=== PATIENT | female | born 1990 | race Caucasian/White ===

== ENCOUNTER 2016-11-15 17:04 | Emergency (ER) | payer OTHER ==
[~2016-11-15] VITALS: Ht 149.9 cm; Wt 58.1 kg
--- NOTE | 2016-11-15 17:45 | NUR ---
Pt c/o left ear ache for 2 days and sore throat x 3 weeks. Pt denies CP, SOB, ARAYA, dizziness, n/v, no other complaints, no distress noted. Gave pt RX and d/c instructions, verbalized understanding.
== END 2016-11-15 17:49 | disposition home or self-care (01) ==
LOC: ER 17:05 → EDBD 17:05 → ER 17:49
DX: H66.92 Otitis media, unspecified, left ear (principal); H60.92 Unspecified otitis externa, left ear; F17.200 Nicotine dependence, unspecified, uncomplicated; G43.909 Migraine, unspecified, not intractable, without status migrainosus; Z88.6 Allergy status to analgesic agent
CPT/HCPCS: 99283; A4663

== ENCOUNTER 2016-12-01 05:39 | Emergency (ER) | payer OTHER ==
[~2016-12-01] VITALS: Ht 149.9 cm; Wt 59.0 kg
--- NOTE | 2016-12-01 05:47 | NUR ---
Patient walked into ER c/o frequent/burning upon urination since this AM, Pt is alert, oriented x 4, no resp distress noted or reported upon assessment... md at bedside..
[2016-12-01 05:49] LABS: *BILIRUBIN,URIN NEGATIVE (NEGATIVE); *BLOOD, URINE 3+ (NEGATIVE); *CLARITY,URINE CLOUDY (CLEAR); *COLOR,URINE RED (YELLOW); *KETONES,URINE NEGATIVE (NEGATIVE); *PROTEIN,URINE 2+ (NEGATIVE); *UROBILINOGEN,URINE 0.2 E.U./dl (NORMAL); LEUKOCYTE ESTERASE ,URINE 2+ (NEGATIVE); NITRITE, URINE NEGATIVE (NEGATIVE); PH,URINE 6.5 (5.0-8.0); UGLUCOSE NEGATIVE (NEGATIVE)
[2016-12-01 06:03] LABS: *URINE HCG, QUAL NEGATIVE (NEGATIVE)
[2016-12-01 06:15] LABS: WBC,URINE 20-50 /HPF (0-3)
[2016-12-01 06:16] LABS: BACTERIA,URINE FEW /HPF (NONE SEEN); SQUAMOUS EPITHELIAL CELL,UR FEW /HPF (NONE SEEN)
[2016-12-01] MEDS ORDERED: ONDANSETRON ODT 4 MG TAB.RAPDIS SL ONE (06:30)
[2016-12-01] MEDS ORDERED: AZITHROMYCIN 250 MG TABLET PO ONE (06:30)
[2016-12-01] MEDS ORDERED: PHENAZOPYRIDINE HCL 100 MG TABLET PO ONE (06:30)
[2016-12-01] MEDS ORDERED: CEFTRIAXONE 500 MG VIAL IM ONE (06:30)
[2016-12-01] MEDS ORDERED: ONDANSETRON ODT 4 MG TAB.RAPDIS ONE (06:38)
[2016-12-01] MEDS ORDERED: AZITHROMYCIN 250 MG TABLET ONE (06:38)
[2016-12-01] MEDS ORDERED: LIDOCAINE HCL 1% 20 ML VIAL ONE (06:39)
[2016-12-01] MEDS ORDERED: PHENAZOPYRIDINE HCL 100 MG TABLET ONE (06:39)
[2016-12-01] MEDS ORDERED: CEFTRIAXONE 500 MG VIAL ONE (06:39)
--- NOTE | 2016-12-01 06:43 | NUR ---
Patient discharged to home in stable conditon. Written and verbal after care instructions given. Patient verbalizes understanding of instructions. pt walked out of ER unassisted with belongings at side...
[2016-12-01 06:44] VITALS: BP 115/79
== END 2016-12-01 06:44 | disposition home or self-care (01) ==
LOC: ER 05:41
DX: N30.90 Cystitis, unspecified without hematuria (principal); F17.200 Nicotine dependence, unspecified, uncomplicated; F10.10 Alcohol abuse, uncomplicated; G43.909 Migraine, unspecified, not intractable, without status migrainosus
CPT/HCPCS: 84703; 87077; 87086; A4663; J0696; J3490; Q0144; Q0162

== ENCOUNTER 2017-04-07 05:41 | Emergency (ER) | payer OTHER ==
[~2017-04-07] VITALS: Ht 149.9 cm; Wt 61.2 kg
[2017-04-07] MEDS ORDERED: FLUC150T5 PO (05:57)
[2017-04-07 06:38] VITALS: BP 129/85
== END 2017-04-07 06:38 | disposition home or self-care (01) ==
LOC: ER 05:45
DX: B34.9 Viral infection, unspecified (principal); F17.200 Nicotine dependence, unspecified, uncomplicated; G43.909 Migraine, unspecified, not intractable, without status migrainosus; Z88.6 Allergy status to analgesic agent
CPT/HCPCS: 99283; A4663

== ENCOUNTER 2018-04-13 19:47 | Emergency (ER) | payer OTHER ==
[~2018-04-13] VITALS: Ht 149.9 cm; Wt 56.7 kg
[~2018-04-13 19:47] MED LIST: FLUC150T5 PO
[2018-04-13] MEDS ORDERED: HYDROCODONE/APAP 5-325MG TABLET PO ONE (20:45)
[2018-04-13] MEDS ORDERED: HYDROCODONE/APAP 5-325MG TABLET ONE (21:00)
--- NOTE | 2018-04-13 21:00 | NUR ---
Pt. ambulated into ED w/ c/o 01/18 shoulder pain from self reported dislocation while dancing at 1900, reports previous hx of dislocation and surgical fixation of L shoulder in 2011, orthopedic splint and ice pack applied, will continue to monitor,
--- NOTE | 2018-04-13 21:29 | NUR ---
Patient discharged to home in stable conditon. Written and verbal after care instructions given. Patient verbalizes understanding of instructions. Pt. d/c w/ prescription per MD order, d/c papers signed, all belongings w/ pt., instructed not to drive, ambulated w/ steady gait, ID band removed, no acute distress,
== END 2018-04-13 21:33 | disposition home or self-care (01) ==
LOC: ER 19:47
DX: S43.004A Unspecified dislocation of right shoulder joint, initial encounter (principal); F17.200 Nicotine dependence, unspecified, uncomplicated; Z88.6 Allergy status to analgesic agent; Z79.899 Other long term (current) drug therapy; Z90.49 Acquired absence of other specified parts of digestive tract; X58.XXXA Exposure to other specified factors, initial encounter; Y93.89 Activity, other specified; Y92.89 Other specified places as the place of occurrence of the external cause; Y99.8 Other external cause status
CPT/HCPCS: 73030; A4663

== ENCOUNTER 2018-05-15 17:40 | Emergency (ER) | payer OTHER ==
[~2018-05-15] VITALS: Ht 149.9 cm; Wt 63.5 kg
--- NOTE | 2018-05-15 20:09 | NUR ---
PATIENT LEFT BEFORE BEING SEEN BY ERMD. STATES WILL COME BACK IN AM. NO DISTRESS NOTED ON PATIENT
== END 2018-05-15 20:10 | disposition left against medical advice (07) ==
LOC: ER 17:40
DX: Z53.21 Procedure and treatment not carried out due to patient leaving prior to being seen by health care provider (principal)
CPT/HCPCS: A4663

== ENCOUNTER 2018-07-18 01:17 | Emergency (ER) | payer OTHER ==
[~2018-07-18] VITALS: Ht 149.9 cm; Wt 65.8 kg
[2018-07-18 01:43] LABS: *BILIRUBIN,URIN NEGATIVE (NEGATIVE); *BLOOD, URINE NEGATIVE (NEGATIVE); *CLARITY,URINE CLEAR (CLEAR); *COLOR,URINE YELLOW (YELLOW); *KETONES,URINE NEGATIVE (NEGATIVE); *UROBILINOGEN,URINE 0.2 E.U./dl (NORMAL); LEUKOCYTE ESTERASE ,URINE NEGATIVE (NEGATIVE); NITRITE, URINE NEGATIVE (NEGATIVE); UGLUCOSE NEGATIVE (NEGATIVE)
[2018-07-18 01:48] LABS: *URINE HCG, QUAL NEGATIVE (NEGATIVE)
--- NOTE | 2018-07-18 02:13 | NUR ---
Patient in bed, no acute distress noted. VSS
--- NOTE | 2018-07-18 02:42 | NUR ---
Patient discharged to home in stable conditon. Written and verbal after care instructions given. Patient verbalizes understanding of instructions. Ambulated from ER with stable gait. All belongings with patient. VSS
[2018-07-18 02:43] VITALS: BP 128/74
== END 2018-07-18 02:44 | disposition home or self-care (01) ==
LOC: ER 01:18
DX: R30.0 Dysuria (principal); F17.200 Nicotine dependence, unspecified, uncomplicated; Z90.49 Acquired absence of other specified parts of digestive tract; Z88.8 Allergy status to other drugs, medicaments and biological substances; Z79.899 Other long term (current) drug therapy
CPT/HCPCS: 84703; 87086; A4663

== ENCOUNTER 2019-02-21 13:36 | Emergency (ER) | payer OTHER ==
[~2019-02-21] VITALS: Ht 149.9 cm; Wt 66.7 kg
[2019-02-21] MEDS ORDERED: SWABABLE VALVE TRANSFER SET EA MC ONE (15:11)
[2019-02-21] MEDS ORDERED: IOHEXOL 350 100 ML INFUS..BTL ONE (15:11)
[2019-02-21] MEDS ORDERED: IV NORMAL SALINE 250 ML IV ONE (15:11)
[2019-02-21 15:18] LABS: BASOPHILS # (AUTO) 0.1 K/uL (0.0-8.0); EOSINOPHILS # (AUTO) 0.1 K/uL (0.0-0.7); EOSINOPHILS % (AUTO) 1.6 % (0.0-7.0); HEMATOCRIT 38.4 % (31.2-41.9); HEMOGLOBIN 12.8 g/dL (10.9-14.3); LYMPHOCYTES # (AUTO) 2.8 K/uL (20.0-40.0); LYMPHOCYTES % (AUTO) 40.7 % (20.5-51.5); MEAN CORPUSCULAR HGB CONC 33 g/dL (32.3-35.6); MEAN CORPUSCULAR VOLUME 87.2 fL (75.5-95.3); MONOCYTES # (AUTO) 0.4 K/uL (2.0-10.0); MONOCYTES % (AUTO) 5.6 % (0.0-11.0); NEUTROPHILS # (AUTO) 3.5 K/uL (1.8-8.9); NEUTROPHILS % (AUTO) 51.1 % (38.5-71.5); PLATELET COUNT (AUTO) 233 K/uL (179-408); WHITE BLOOD COUNT (AUTO) 6.8 K/uL (3.8-11.8)
[2019-02-21 15:25] LABS: CREATININE 0.8 mg/dL (0.6-1.3); POTASSIUM 3.8 mmol/L (3.5-5.1)
[2019-02-21] MEDS: IV NORMAL SALINE 1000 ML BAG IV ONE (15:29)
[2019-02-21] MEDS ORDERED: KETOROLAC TROMETHAMINE 15 MG INJ ONE (15:34)
[2019-02-21 15:38] LABS: BILIRUBIN,DIRECT 0.1 mg/dL (0.0-0.2); BILIRUBIN,TOTAL 0.3 mg/dL (0.2-1.0); TOTAL PROTEIN, SERUM 7.7 g/dL (6.4-8.2)
[2019-02-21] MEDS: KETOROLAC TROMETHAMINE 15 MG INJ IVP ONE (15:38)
--- NOTE | 2019-02-21 17:25 | NUR ---
IV removed. Catheter intact and site benign. Pressure and 4x4 gauze applied to site. No bleeding noted. Patient discharged to home in stable conditon. Written and verbal after care instructions given. Patient verbalizes understanding of instructions. pt ambulating with steady gait
[2019-02-21 17:27] VITALS: BP 117/72
== END 2019-02-21 17:20 | disposition home or self-care (01) ==
LOC: ER 13:36
DX: S29.012A Strain of muscle and tendon of back wall of thorax, initial encounter (principal); G43.909 Migraine, unspecified, not intractable, without status migrainosus; F17.200 Nicotine dependence, unspecified, uncomplicated; Z90.49 Acquired absence of other specified parts of digestive tract; Z88.8 Allergy status to other drugs, medicaments and biological substances; Z79.899 Other long term (current) drug therapy; X58.XXXA Exposure to other specified factors, initial encounter; Y93.89 Activity, other specified; Y92.89 Other specified places as the place of occurrence of the external cause; Y99.8 Other external cause status
CPT/HCPCS: 36415; 71045; 71275; 80048; 80076; 83880; 84484; 84702; 85025; 85379; 85651; 85730; 93005; 96374; 99284; J1885; Q9967; 70030-TC; A4663; J7030; J7050

== ENCOUNTER 2022-01-21 17:22 | Emergency (ER) | payer OTHER ==
[~2022-01-21] VITALS: Ht 149.9 cm; Wt 68.0 kg
[2022-01-21 17:55] LABS: *BILIRUBIN,URIN NEGATIVE (NEGATIVE); *CLARITY,URINE CLEAR (CLEAR); *COLOR,URINE YELLOW (YELLOW); *KETONES,URINE NEGATIVE (NEGATIVE); *UROBILINOGEN,URINE 0.2 E.U./dl (NORMAL); LEUKOCYTE ESTERASE ,URINE NEGATIVE (NEGATIVE); NITRITE, URINE NEGATIVE (NEGATIVE); PH,URINE 5.5 (5.0-8.0); UGLUCOSE NEGATIVE (NEGATIVE)
[2022-01-21 17:57] LABS: *BLOOD, URINE TRACE (NEGATIVE); *URINE HCG, QUAL NEGATIVE (NEGATIVE)
[2022-01-21 18:06] LABS: BACTERIA,URINE FEW /HPF (NONE SEEN); RBC,URINE 0-3 /HPF (0-3); SQUAMOUS EPITHELIAL CELL,UR FEW /HPF (NONE SEEN); WBC,URINE 0-3 /HPF (0-3)
--- NOTE | 2022-01-21 18:09 | NUR ---
.Patient is resting comfortably on ANGEL donato, pending MD evaluation@this time
--- NOTE | 2022-01-21 18:34 | NUR ---
Dr [email or web address], medical screening exam in progress.
[2022-01-21] MEDS ORDERED: TRAMADOL HCL 50 MG TABLET PO ONE (18:45)
[2022-01-21] MEDS ORDERED: TRAMADOL HCL 50 MG TABLET ONE (18:47)
[2022-01-21 18:56] LABS: HEMATOCRIT 39.7 % (31.2-41.9); MEAN CORPUSCULAR HEMOGLOBIN 28.8 uug (24.7-32.8); MEAN CORPUSCULAR VOLUME 86.1 fL (75.5-95.3); PLATELET COUNT (AUTO) 257 K/uL (179-408)
--- NOTE | 2022-01-21 19:00 | NUR ---
Received report from Melani HOOK.
[2022-01-21 19:06] LABS: BILIRUBIN,TOTAL 0.3 mg/dL (0.2-1.0); TOTAL PROTEIN, SERUM 7.8 g/dL (6.4-8.2)
--- NOTE | 2022-01-21 19:25 | NUR ---
Dr. Clements at bedside.
[2022-01-21] MEDS ORDERED: HYDR-4209 PO (19:26)
--- NOTE | 2022-01-21 19:32 | NUR ---
Patient discharged to home in stable condition. A/O x4. NAD noted. All belongings with patient. Written and verbal after care instructions given. Patient verbalizes understanding of instructions. Stressed follow up or return to ER for worsening s/s.
[2022-01-21 19:37] VITALS: BP 130/74
== END 2022-01-21 19:32 | disposition home or self-care (01) ==
LOC: ER 17:22
DX: R10.9 Unspecified abdominal pain (principal); M54.9 Dorsalgia, unspecified; Z90.49 Acquired absence of other specified parts of digestive tract; Z88.6 Allergy status to analgesic agent
CPT/HCPCS: 36415; 83690; 84703; 85025; A4663

== ENCOUNTER 2022-12-27 10:40 | Emergency (ER) | payer OTHER ==
[~2022-12-27] VITALS: Ht 149.9 cm; Wt 63.5 kg
[~2022-12-27 10:40] MED LIST changes: +HYDR-4209 PO
[2022-12-27 10:54] VITALS: O2SAT 100
[2022-12-27 11:28] LABS: *BILIRUBIN,URIN NEGATIVE (NEGATIVE); *CLARITY,URINE CLEAR (CLEAR); *COLOR,URINE YELLOW (YELLOW); *KETONES,URINE NEGATIVE (NEGATIVE); *PROTEIN,URINE NEGATIVE (NEGATIVE); *UROBILINOGEN,URINE 0.2 E.U./dl (NORMAL); LEUKOCYTE ESTERASE ,URINE NEGATIVE (NEGATIVE); NITRITE, URINE NEGATIVE (NEGATIVE); UGLUCOSE NEGATIVE (NEGATIVE)
[2022-12-27 11:29] LABS: *BLOOD, URINE TRACE (NEGATIVE)
[2022-12-27 11:31] LABS: *URINE HCG, QUAL NEGATIVE (NEGATIVE)
[2022-12-27 12:25] LABS: BACTERIA,URINE FEW /HPF (NONE SEEN); RBC,URINE 0-3 /HPF (0-3); WBC,URINE NONE SEEN /HPF (0-3)
[2022-12-27 12:26] LABS: SQUAMOUS EPITHELIAL CELL,UR FEW /HPF (NONE SEEN)
[2022-12-27] MEDS ORDERED: ACET1TAB23 PO (14:13)
[2022-12-27] MEDS ORDERED: VALA10002 PO (14:13)
[2022-12-29 09:07] LABS: *TRIC.VAG. NAA Negative (Negative)
[2022-12-30 02:06] LABS: *CHLAMYDIA NAA Negative (Negative); *GC NAA Negative (Negative)
== END 2022-12-27 14:26 | disposition home or self-care (01) ==
LOC: ER 10:40
DX: R10.9 Unspecified abdominal pain (principal); B00.9 Herpesviral infection, unspecified; Z90.49 Acquired absence of other specified parts of digestive tract; Z88.8 Allergy status to other drugs, medicaments and biological substances; Z79.899 Other long term (current) drug therapy
CPT/HCPCS: 84703; 87491; A4663